=== PATIENT | male | born 1980 | race Caucasian/White ===

== ENCOUNTER 2025-02-01 19:16 | Emergency (ER) | payer BC, SELFPAY ==
[2025-02-01] VITALS (7 sets, daily range): BP systolic 115–130; BP diastolic 68–90
[2025-02-01 19:43] LABS: Hematocrit 44.8 % (39.0-52.0); Hemoglobin 16.0 g/dL (13.0-18.0); Mean Corp Hgb Conc. 35.7 g/dL (33.0-37.0); Mean Corpuscular Volume 84.1 fL (80.0-94.0); Nucleated Red Blood Cells % 0 % (-); Platelet Count 317 10^3/uL (130-400); Red Cell Dist. Width 13.0 % (11.5-14.5)
[2025-02-01 19:56] LABS: ALT (SGPT) 45 U/L (0-50); AST (SGOT) 28 U/L (17-59); Albumin 4.7 g/dl (3.5-5.0); Alkaline Phosphatase 47 U/L (38-126); Blood Urea Nitrogen 24 mg/dl (9-20); Calcium 9.8 mg/dl (8.4-10.2); Carbon Dioxide 25 mmol/L (22-30); Chloride 105 mmol/L (98-107); Glucose 97 mg/dl (70-99); Potassium 4.0 mmol/L (3.5-5.1); Sodium 140 mmol/L (135-145); Total Protein 7.4 g/dl (6.3-8.2); eGFR > 60.00
[2025-02-01 20:00] LABS: Troponin I < 0.012 ng/ml
[2025-02-01 22:25] LABS: Troponin I < 0.012 ng/ml
--- NOTE | 2025-02-01 22:54 | ED.GENMED ---
History of Present Illness
General
Chief Complaint: Chest Pain
Source: patient and spouse
Time Seen by Provider: 02/01/25 20:57
History of Present Illness
History of Present Illness:
Note:
CHIEF COMPLAINT(S)
Chest pain
HISTORY OF PRESENT ILLNESS
The patient is a 45-year-old male presenting with episodes of sharp chest pain on the left side. The patient describes the pain as 'like, knocked the wind out of me,' lasting five to ten seconds, and resolving spontaneously. These episodes occurred
twice in quick succession, initially while sitting at the computer around 10-11 a.m. and a second time the following morning upon waking. The patient denies any previous history of similar chest pain or any symptoms associated with exertion, such as
dyspnea or pain upon deep inspiration. There is no associated leg swelling or significant recent travel. Additional historian includes a spouse who states that he did have a stress test in his past.
SOCIAL HISTORY
The patient reports no current smoking. Family history is significant for coronary artery disease in the paternal grandfather.
REVIEW OF SYSTEMS
- Cardiovascular: Reports chest pain, denies dyspnea or exertional symptoms.
- Respiratory: Denies dyspnea.
- Musculoskeletal: Suggests potential for musculoskeletal origin of pain.
PHYSICAL EXAM
General: Alert, no acute distress.
Skin: Warm, dry.
Head: Normocephalic, atraumatic.
Neck: Supple, trachea midline.
Eye, Ears, Nose, Mouth, and Throat: Oral mucosa moist, exam normal.
Cardiovascular: Heart regular without murmur, normal peripheral perfusion, no edema.
Respiratory: Respirations are non-labored.
Gastrointestinal: Abdomen nondistended.
Back: Normal range of motion, normal alignment.
Musculoskeletal: Normal range of motion, normal strength.
Neurological: Alert and oriented to person, place, time, and situation. No focal neurological deficit observed.
Psychiatric: Cooperative, appropriate mood & affect.
PROBLEM LIST
- Acute: Episodes of sharp left-sided chest pain.
- Chronic: No chronic problems were mentioned.
PLAN
- Obtain a repeat cardiac enzyme test to check for myocardial damage.
- Conduct a chest X-ray to evaluate heart size and aortic anatomy.
- If cardiac enzymes remain negative and vital signs are stable, the patient may be discharged with low suspicion of acute coronary syndrome.
- Arrange cardiology follow-up to consider further evaluation and potential stress testing if necessary.
DIFFERENTIAL DIAGNOSIS
The Differential Diagnosis includes, in no particular order and is not limited to:
1. Acute Coronary Syndrome
2. Atypical Angina
3. Musculoskeletal Chest Pain
4. Gastroesophageal Reflux Disease
5. Pulmonary Embolism
6. Pericarditis
7. Costochondritis
8. Panic Attack
9. Aortic Dissection
10. Esophageal Spasm
Disposition:
SUMMARY OF ENCOUNTER
The patient, a 45-year-old male, presented to the emergency department with episodes of sharp left-sided chest pain. The pain was described as very brief, lasting only five to ten seconds, resolving spontaneously. After evaluation in the ED, EKG
findings showed no ischemia, and troponin levels were unremarkable on two occasions, indicating no myocardial damage. Additional tests including CBC and chemistry panel were mostly normal, though the white blood cell count was slightly elevated at
11.6. A chest X-ray showed no abnormalities. The patient appeared well and was referred for outpatient cardiology follow-up.
PLAN
Obtain a repeat cardiac enzyme test to ensure no myocardial damage has occurred. An outpatient cardiology follow-up is planned to consider further evaluation, with potential stress testing if necessary.
INDEPENDENT REVIEW OF LABS AND INTERPRETATION OF TESTS
- My independent review of EKG indicates no ischemic changes.
- My independent review of CBC reveals a slightly elevated white blood cell count at 11.6 while hemoglobin remains normal.
- My independent review of troponin tests indicates levels less than 0.012, showing no cardiac enzyme elevation.
- My independent review of chemistry is unremarkable.
- My independent review of the chest X-ray shows no active pulmonary or cardiac process.
PATIENT EDUCATION AND COUNSELING
The patient was counseled on the importance of follow-up with cardiology and advised of the reasons to return to the emergency department if symptoms worsen or new symptoms develop.
FOLLOW-UP INSTRUCTIONS
Patient was advised to follow up with outpatient cardiology promptly for further assessment and to schedule any necessary stress testing or cardiac evaluation.
MEDICAL DECISION MAKING
1. Number and Complexity of Problems Addressed: DDx list included Acute Coronary Syndrome, Atypical Angina, Musculoskeletal Chest Pain, Gastroesophageal Reflux Disease, Pulmonary Embolism, Pericarditis, Costochondritis, Panic Attack, Aortic
Dissection, Esophageal Spasm.
2. Data:
- Category 1: Tests and documents reviewed include EKG, CBC, Chemistry panels, Troponin results, and chest X-ray. My interpretation is indicated in the independent review section.
3. Risk: Consideration of Admission/Observation: Escalation of care including admission/observation was considered given the complexity and risk of the patients presenting complaint. However, work-up was reassuring, and the patient appears safe for
outpatient management with close follow-up.
DIAGNOSIS
- Atypical Chest Pain [R07.89]
Past History
Past History
ED Past Medical History: None
ED Past Surgical History: None
Social History
Tobacco: Non-smoker
Alcohol: Occasional
Personal:
Living: with family
Phy Exam
Physical Exam
Physical Exam:
.
Scores
Heart Score for Chest Pain Patients
STEMI patient?: No
History: Slightly or Non-Suspicious
ECG: Normal
Age: >45 - <65 years
Risk Factors: No Risk Factors
Troponin: </= Normal Limit
Heart Score for Chest Pain Patients: 1
Heart Score Risk: 2.5% MACE over next 6 weeks
Course
Orders/Labs/Results
Orders:
Orders
02/01/25 19:18
Electrocardiogram (*1) Urgent
Reason for Study: Chest Pain
02/01/25 19:19
EKG- Treatment ONCE
02/01/25 19:30
Complete Blood Count/With Diff Urgent
Comprehensive Metabolic Panel Urgent
Troponin I Urgent
02/01/25 21:17
CR Chest - 2 Views Urgent
Comment:
Reason For Exam: cp
02/01/25 21:27
Electrocardiogram (*1) Urgent
Reason for Study: Chest Pain
EKG- Treatment ONCE
02/01/25 21:42
Troponin I Urgent
Abnormal Lab Results
02/01/25
19:30
WBC 11.6 H 10^3/uL
(4.8-10.8)
MPV 11.1 H fL
(7.4-10.4)
Absolute Neuts (auto) 6.7 H 10^3/uL
(1.4-6.5)
Absolute Lymphs (auto) 3.8 H 10^3/uL
(1.2-3.4)
Absolute Monos (auto) 0.8 H 10^3/uL
(0.1-0.6)
BUN 24 H mg/dl
(9-20)
02/01/25 19:30
02/01/25 19:30
Vital Signs
Initial and Last Documented VS:
Initial Vital Signs
Temp Pulse Resp BP Pulse Ox
98.3 F 76 18 130/90 97
02/01/25 19:24 02/01/25 19:24 02/01/25 19:24 02/01/25 19:24 02/01/25 19:24
Last Documented Vital Signs
Temp Pulse Resp BP Pulse Ox
98.3 F 72 18 127/85 97
02/01/25 19:24 02/01/25 23:02 02/01/25 19:24 02/01/25 23:02 02/01/25 23:00
*Pulse Oximetry
SaO2: 95
Oxygen Mode of Delivery: Room air
Patient hypoxic: no
*Critical Care Note
Total Time (30-74mins, 75-104mins- exclusive of procedures): Not Applicable
ED Attending Note
-
Portions of this chart may have been created with voice recognition software.� Occasional wrong word or��sound alike� substitutions may have occurred due to the inherent limitations of voice recognition software.
Discharge Plan
Departure
Patient Disposition: Home (Routine Discharge)
Date of Disposition: 02/01/25
Time of Disposition: 22:55
Patient with high blood pressure during this ER visit?: No
Discharge Problem:
Atypical chest pain
Instructions: Chest Pain CBC Follow Up
Prescriptions:
No Action
acetaminophen [acetaminophen] 325 mg tablet
650 mg PO Q6HPRN PRN (Reason: mild pain) Qty: 14 0RF
ibuprofen 200 mg tablet
400 - 600 mg PO Q6HPRN PRN (Reason: moderate pain) Qty: 14 0RF
oxycodone 5 mg tablet
5 mg PO Q6HPRN PRN (Reason: breakthrough/severe pain) Qty: 8 0RF
Referrals:
Edgard Edgar DO [Family Provider]
Activity Restrictions/Additional Instructions:
Please avoid strenuous or exertional activity until cleared by cardiology. Please see cardiology in the next 48 hours for reevaluation. Return immediately for worsening pain, shortness breath, palpitations, sweating, nausea, weakness of any kind,
numbness, tingling or any other concerns.
Cardiology has been notified and a follow up appointment has been requested. Someone will call you on the next business day to schedule a follow up appointment.
Interventions
Interventions:
*Risk Screen - Suicide Last Done: 02/01/25 19:25
*General Assessment Last Done: 02/01/25 20:21
*Neglect/Abuse Screening Last Done: 02/01/25 19:25
*ED- Fall Risk Assessment Last Done: 02/01/25 20:21
*ED COVID-19 Vaccine History Last Done: 02/01/25 20:05
*ED Influenza Vaccine History Last Done: 02/01/25 20:05
*Nursing Disposition Last Done: 02/01/25 23:00
ED- Cardiac Assessment Last Done: 02/01/25 23:00
Discharge Date and Time
Discharge Date/Time: 02/01/25 23:00
Print Language: ESTONIAN
== END 2025-02-01 23:00 | disposition home or self-care (01) ==
LOC: EMR 19:16
PROVIDERS: EMERGENCY PHYSICIAN Emergency Medicine; FAMILY PHYSICIAN Family Medicine
DX: R07.89 Other chest pain (principal); Z82.49 Family history of ischemic heart disease and other diseases of the circulatory system
CPT/HCPCS: 99285; 71046; 80053; 84484; 85025; 93005

== ENCOUNTER → 2025-03-05 14:23 | Outpatient (REF) | payer BC, SELFPAY | LOC: RCS 14:23 | PROVIDERS: ATTENDING PHYSICIAN Internal Medicine Cardiovascular Disease | DX: R07.89 Other chest pain (principal); R94.31 Abnormal electrocardiogram [ECG] [EKG]; I49.1 Atrial premature depolarization | CPT/HCPCS: 93017 ==

== ENCOUNTER → 2025-03-14 13:59 | Outpatient (REF) | payer BC, SELFPAY | LOC: HWRCS 13:59 | PROVIDERS: ATTENDING PHYSICIAN Internal Medicine Cardiovascular Disease; FAMILY PHYSICIAN Family Medicine | DX: R07.89 Other chest pain (principal); R94.31 Abnormal electrocardiogram [ECG] [EKG]; I49.1 Atrial premature depolarization | CPT/HCPCS: 93306 ==